=== PATIENT | male | born 1960 | race Caucasian/White ===

== ENCOUNTER 2023-03-15 01:20 | Emergency (ER) | payer BC ==
[2023-03-15 02:12] LABS: CHLORIDE,CL 104 mmol/L (98-107); SODIUM,NA 140 mmol/L (136-145)
[2023-03-15 02:14] LABS: ANION GAP 12.8 mmol/L (5-15); ESTIMATED GFR 95 mL/min (>=60)
[2023-03-15] MEDS: amLODIPine 5 MG Tab PO ONE (02:33)
== END 2023-03-15 02:39 | disposition home or self-care (01) ==
LOC: VM.ED 01:20
DX: R07.89 Other chest pain (principal); M25.512 Pain in left shoulder; I10 Essential (primary) hypertension; E78.00 Pure hypercholesterolemia, unspecified; Z79.82 Long term (current) use of aspirin; Z79.899 Other long term (current) drug therapy
CPT/HCPCS: 36415; 80053; 82550; 83615; 84484; 85025; 86140; 93005; 93010; 99284; 99285; A9270-GY